=== PATIENT | male | born 1960 | race Caucasian/White ===

== ENCOUNTER 2020-01-04 12:55 | Emergency (ER) | payer MEDICARE, MEDICAID ==
[~2020-01-04] VITALS: Ht 175.3 cm; Wt 61.0 kg
[2020-01-04] MEDS ORDERED: AMOX-422 PO (13:52)
[2020-01-04] MEDS ORDERED: TAM75C PO (13:52)
[2020-01-04] MEDS ORDERED: PRED20TA PO (13:52)
[2020-01-04] MEDS ORDERED: predniSONE 20 mg tablet PO ONE (13:55)
[2020-01-04] MEDS ORDERED: ipratropium/albuterol 3ml nebule NEB ONE (13:55)
--- NOTE | 2020-01-04 14:17 | NUR ---
RT AT BEDSIDE.
[2020-01-04 14:45] VITALS: BP 135/68
--- NOTE | 2020-01-04 16:26 | NUR ---
RT UNABLE TO COMPLETE POST ASSESSMENT DUE TO BEING CALLED TO CODE BLUE IN ER Addendum: 01/04/20 at 1626 by Liz Lopes RT Amended: Links added.
== END 2020-01-04 14:47 | disposition home or self-care (01) ==
LOC: ER 12:56
DX: J44.1 Chronic obstructive pulmonary disease with (acute) exacerbation (principal); F17.200 Nicotine dependence, unspecified, uncomplicated; Z98.890 Other specified postprocedural states; Z79.2 Long term (current) use of antibiotics; Z79.899 Other long term (current) drug therapy
CPT/HCPCS: 93005; 94640; 99283; J7512

== ENCOUNTER 2020-03-26 13:43 | Emergency (ER) | payer MEDICARE, MEDICAID ==
[~2020-03-26] VITALS: Ht 175.3 cm; Wt 59.1 kg
[2020-03-26] MEDS ORDERED: predniSONE 20 mg tablet PO ONE (14:40)
--- NOTE | 2020-03-26 15:20 | NUR ---
PATIENT SWAB COLLECTED FOR NOVEL CORONAVIRUS AT THIS TIME PER MD ORDER.
[2020-03-26 15:21] VITALS: BP 139/83
[2020-03-26] MEDS ORDERED: ALB0.5UD IH (15:40)
[2020-03-26] MEDS ORDERED: AZIT-63 PO (15:40)
[2020-03-26] MEDS ORDERED: BUDE10.22 INH (15:40)
[2020-03-26] MEDS ORDERED: PRED20TA PO (15:40)
== END 2020-03-26 15:56 | disposition home or self-care (01) ==
LOC: ER 13:44
DX: S10.86XA Insect bite of other specified part of neck, initial encounter (principal); Z20.828 Contact with and (suspected) exposure to other viral communicable diseases; J44.1 Chronic obstructive pulmonary disease with (acute) exacerbation; I05.0 Rheumatic mitral stenosis; Z98.890 Other specified postprocedural states; Z79.2 Long term (current) use of antibiotics; Z79.899 Other long term (current) drug therapy; W57.XXXA Bitten or stung by nonvenomous insect and other nonvenomous arthropods, initial encounter; Y93.89 Activity, other specified; Y92.89 Other specified places as the place of occurrence of the external cause; Y99.9 Unspecified external cause status
CPT/HCPCS: 36415; 71045; 87635; 93005; 99285; J7512